=== PATIENT | male | born 2000 | race African-American/Black ===

== ENCOUNTER 2023-06-08 13:43 | Outpatient (CLI) | payer OTHER, SELFPAY ==
[2023-06-08 14:33] LABS: Eosinophils Percent Auto 0.4 % (0-4.4); Hematocrit 31.3 % (42.0-52.0); Hemoglobin 9.2 g/dL (14.0-18.0); Immature Granulocyte Absolute 0.01 K/mm3 (0.00-0.031); Immature Granulocyte Percent A 0.2 % (0-0.5); Lymphocytes Absolute Auto 1.26 K/mm3 (0.9-3.2); Lymphocytes Percent Auto 27.1 % (18.3-44.2); Mean Corpuscular HGB Conc 29.4 g/dl (32-36); Mean Corpuscular Hemoglobin 23.8 pg (26-34); Mean Corpuscular Volume 81.1 fl (80-100); Mean Platelet Volume 11.7 fl (7.4-10.4); Monocytes Absolute Auto 0.3 K/mm3 (0.1-0.6); Monocytes Percent Auto 6.9 % (2.6-8.5); Neutrophils Percent Auto 65.4 % (45.5-73.1); Platelet Count Result 278 k/mm3 (150-375); Red Blood Count 3.86 M/mm3 (4.6-6.20); Red Cell Distribution Width 16.5 % (11.5-14.5); White Blood Count 4.7 K/mm3 (4.5-10.0)
[2023-06-08 14:48] LABS: Alanine Aminotransferase 11 U/L (6-50); Albumin Level 3.8 g/dL (3.5-5.1); Alkaline Phosphatase 85 U/L (38-126); Anion Gap 7 mmol/L (4-12); Aspartate Amino Transferase 31 U/L (17-59); Bilirubin,Total 0.5 mg/dL (0.2-1.3); Blood Urea Nitrogen 8 mg/dL (9-20); CRP 2.2 mg/dL (<1.0); Calcium 9.4 mg/dL (8.4-10.2); Carbon Dioxide 30 mmol/L (22-30); Chloride 102 mmol/L (98-107); Cholesterol 146 mg/dL (0-200); Estimated Glomerular Filt Rate > 60; Glucose 94 mg/dL (65-110); HDL Direct 18 mg/dL; Potassium 3.7 mmol/L (3.4-5.0); Sodium 139 mmol/L (137-145); Triglycerides 141 mg/dL (<150)
[2023-06-08 14:54] LABS: Rheumatoid Factor < 12.0 IU/ML (<12)
[2023-06-08 15:01] LABS: LDL Cholesterol Direct 109 mg/dL
[2023-06-08 15:12] LABS: Iron 37 ug/dL (49-181)
[2023-06-08 15:21] LABS: Percent Iron Saturation 17 % (20-50)
[2023-06-08 15:25] LABS: Total Triiodothyronine (T3) 1.27 NG/ML (0.97-1.69)
[2023-06-08 15:38] LABS: Erythrocyte Sedimentation Rate 78 mm/hr (0-20)
[2023-06-08 15:48] LABS: Free T4 Free Thyroxine 1.09 ng/mL (0.78-2.19)
[2023-06-08 16:00] LABS: Folic Acid 9.5 ng/mL (2.76->20)
[2023-06-08 16:11] LABS: Vitamin D 25 Hydroxy 18.9 ng/mL
== END 2023-06-08 13:44 | disposition home or self-care (01) ==
PROVIDERS: PCP Family Medicine; Visit Provider Family Medicine
DX: R53.83 Other fatigue (principal); E78.5 Hyperlipidemia, unspecified; I10 Essential (primary) hypertension; D64.9 Anemia, unspecified; M25.50 Pain in unspecified joint
CPT/HCPCS: 36415; 80053; 80061; 82306; 82728; 82746; 83540; 83550; 84439; 84443; 84480; 85025; 85652; 86038; 86140; 86430

== ENCOUNTER 2023-07-10 11:38 | Outpatient (CLI) | payer OTHER, SELFPAY ==
[2023-07-10 12:07] LABS: Eosinophils Absolute Auto 0.1 K/mm3 (0-0.3); Eosinophils Percent Auto 1.4 % (0-4.4); Hematocrit 29.1 % (42.0-52.0); Hemoglobin 8.6 g/dL (14.0-18.0); Immature Granulocyte Absolute 0.01 K/mm3 (0.00-0.031); Immature Granulocyte Percent A 0.2 % (0-0.5); Lymphocytes Absolute Auto 0.73 K/mm3 (0.9-3.2); Lymphocytes Percent Auto 17.5 % (18.3-44.2); Mean Corpuscular HGB Conc 29.6 g/dl (32-36); Mean Corpuscular Hemoglobin 23.9 pg (26-34); Mean Corpuscular Volume 80.8 fl (80-100); Monocytes Absolute Auto 0.2 K/mm3 (0.1-0.6); Monocytes Percent Auto 3.8 % (2.6-8.5); Neutrophils Absolute Auto 3.2 K/mm3 (1.3-6.7); Neutrophils Percent Auto 77.1 % (45.5-73.1); Platelet Count Result 276 k/mm3 (150-375); Red Cell Distribution Width 16.7 % (11.5-14.5); White Blood Count 4.2 K/mm3 (4.5-10.0)
[2023-07-10 12:21] LABS: Alanine Aminotransferase 11 U/L (6-50); Alkaline Phosphatase 73 U/L (38-126); Anion Gap 7 mmol/L (4-12); Aspartate Amino Transferase 19 U/L (17-59); Bilirubin,Total 0.5 mg/dL (0.2-1.3); Blood Urea Nitrogen 7 mg/dL (9-20); CRP 1.6 mg/dL (<1.0); Calcium 9.3 mg/dL (8.4-10.2); Carbon Dioxide 30 mmol/L (22-30); Chloride 106 mmol/L (98-107); Estimated Glomerular Filt Rate > 60; Glucose 105 mg/dL (65-110); Potassium 3.4 mmol/L (3.4-5.0); Sodium 143 mmol/L (137-145)
[2023-07-10 12:44] LABS: Hypochromasia 2+; Ovalocytes 2+; Platelet Estimate Adequate (Adequate); Schistocytes None Seen
[2023-07-10 13:29] LABS: Erythrocyte Sedimentation Rate > 140 mm/hr (0-20)
[2023-07-10 20:22] LABS: HIV 1/2 Ab P24 Ag 104
[2023-07-10 20:24] LABS: HIVc Retest 1 102; HIVc Retest 2 104
[2023-07-11 19:31] LABS: HIV 1/2 Ab P24 Ag Result Reactive (Negative)
[2023-07-12 09:06] LABS: Rapid Plasma Reagin Reactive (NonReactive)
[2023-07-13 15:03] LABS: RPR Result REACTIVE (NON-REACTIVE)
[2023-07-14 16:10] LABS: HIV 1 2 Ag Ab 4th Gen w Rflxs REPEATEDLY REACTIVE (NON-REACTIVE); HIV 1 Ab Chg Test Yes; HIV 1 Antibody POSITIVE (NEGATIVE); HIV 2 Ab Chg Test Yes; HIV 2 Antibody NEGATIVE (NEGATIVE)
== END 2023-07-10 11:39 | disposition home or self-care (01) ==
PROVIDERS: PCP Family Medicine
DX: R21 Rash and other nonspecific skin eruption (principal)
CPT/HCPCS: 36415; 80053; 85025; 85652; 86038; 86140; 86592; 86701; 86702; 86703; 86780; 87389; G0432

== ENCOUNTER 2023-12-07 16:38 | Emergency (ER) | payer OTHER, SELFPAY ==
[2023-12-07 16:48] VITALS: BP 120/65; PULSE 54; RESP 17; TEMP 36.6; O2SAT 100
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
== END 2023-12-07 17:25 | disposition home or self-care (01) ==
PROVIDERS: Emergency Provider Nurse Practitioner Family; PCP Family Medicine
DX: M54.6 Pain in thoracic spine (principal)
CPT/HCPCS: 99213; G0463

== ENCOUNTER 2024-11-16 16:46 | Emergency (ER) | payer OTHER, SELFPAY ==
[2024-11-16 16:53] VITALS: BP 120/77; PULSE 86; RESP 16; TEMP 36.8; O2SAT 98
--- NOTE | 2024-11-16 19:32 | ED_ITS ---
HPI - Dental/Oral General Chief complaint: Dental/Oral Stated complaint: Right Side Facial Swelling Time Seen by Provider: 11/16/24 17:00 Source: patient and RN notes reviewed Mode of arrival: ambulatory Limitations: no limitations History of Present Illness HPI Narrative: 24-year-old male presents Express Care complaining right left-sided facial swelling and possible dental abscess. Patient reports having a fractured teeth to his right upper gum today woke up with severe swelling and pain to the right side of his face. Patient denies any difficulty clearing secretions or trismus. Denies any fevers, body aches, chills, breathing problems, or any other symptoms. Patient has a scheduled appointment with his dentist at the end the month. Related Data Allergies Allergy/AdvReac Type Severity Reaction Status Date / Time amoxicillin Allergy Intermediate Rash Verified 12/07/23 17:19 Review of Systems Review of Systems: CONSTITUTIONAL: Denies fever, chills, or sweats. EYES: Denies visual changes, redness, or discharge. ENT: Denies rhinorrhea, congestion, sore throat, or otalgia. MOUTH: POSITIVE FOR DENTAL PAIN. CARDIOVASCULAR: Denies chest pain, palpitations, or edema. RESPIRATORY: Denies cough or dyspnea. GASTROINTESTINAL: Denies abdominal pain, nausea, vomiting, or diarrhea. GENITOURINARY: Denies dysuria or hematuria. SKIN: Denies rash or itching. MUSCULOSKELETAL: Denies back pain, joint pain, or myalgia. NEUROLOGIC: Denies headache, numbness, or weakness. PSYCHIATRIC: Denies anxiety or depression. All other systems reviewed are negative, except as documented in HPI. PMFSH Comments At the time of my signature, I reviewed and agree with the nursing past medical, surgical, social, and family history. There is no relevant family history pertinent to the patient complaint. Exam Narrative: GENERAL: This is a well-nourished, well-developed adult, in no apparent dist ress. They are non ill-appearing, nontoxic appearing. HEAD: normocephalic, atraumatic. EYES: Sclera clear/white. Conjunctiva normal. Vision is grossly intact. Extraocular movements intact EARS: External ears normal, Hearing grossly intact. NOSE: External nose normal THROAT: Mucous membranes moist, posterior pharynx clear, without erythema or swelling. Uvula midline. OROPHARYNX: Right upper 2nd bicuspid and molar small erythematous and fractured. Right upper 2nd bicuspid with prominent tooth decay present. Dental decay present. No gingivitis. There is right facial swelling. No pain or swelling of the tongue. Tongue is normal. No trismus. NECK: Neck supple, non-tender without lymphadenopathy, masses or thyromegaly. CARDIOVASCULAR: Regular rate and rhythm RESPIRATORY: Respiratory rate normal, respiratory effort nonlabored, no respiratory distress SKIN: warm, Dry, intact with no suspicious lesions or rash, good texture and turgor. NEURO: awake, alert, and oriented to person, place and time. There were no obvious focal neurologic abnormalities. EXTREMITIES: No joint tenderness, effusion, or edema noted. Course Course Emergency Course: Portions of this record may have been created with voice recognition software Level of Care: Express Care Visit Vital Signs Vital signs: Vital Signs Temperature 98.3 F 11/16/24 16:53 Pulse Rate 86 11/16/24 16:53 Respiratory Rate 16 11/16/24 16:53 Blood Pressure 120/77 11/16/24 16:53 Pulse Oximetry 98 11/16/24 16:53 Oxygen Delivery Room Air 11/16/24 16:53 Temperature 98.3 F 11/16/24 16:53 Pulse Rate 86 11/16/24 16:53 Respiratory Rate 16 11/16/24 16:53 Blood Pressure 120/77 11/16/24 16:53 Pulse Oximetry 98 11/16/24 16:53 Oxygen Delivery Room Air 11/16/24 16:53 Reviewed MDM - Dental/Oral MDM Narrative Medical decision making narrative: Patient has a dental abscess. Will treat with clindamycin. Patient has a follow-up at the end of the month for a dentist. Discussed physical exam findings. Advised supportive measures and signs/symptoms to go to the ER. Pt is appropriate for outpt treatment and f/u. Differential Diagnosis Differential diagnosis: Likely gingival abscess, dental caries and dental abscess Critical Care Time Critical Care Time Critical Care Time: No Discharge Plan Discharge Clinical Impression: Dental abscess Patient Disposition: Home Condition: Stable Instructions: Antibiotic Form, Dental Abscess (ED) Additional Instructions: Take the antibiotics as directed. Take it with food. You may take ibuprofen 600 mg to 800 mg every 6-8 hours. Do not exceed more than 800 mg of ibuprofen per dose. Do not exceed more than 3200 mg ibuprofen in a day. You may take up to 1000 mg Tylenol every 6-8 hours. Do not exceed 1000 mg per dose, do exceed more than 4000 mg of Tylenol in a day. Juliette your teeth and floss at least 2 times a day. You may use mouthwash after each brushing as well. Follow-up with dentist next week. If you developed worsening swelling, fevers, difficulty swallowing or breathing, difficulty opening her jaw, swelling under the tongue, or any other concerns please go to the ER immediately. Patient Language: Tristanian Prescriptions: New clindamycin HCl [Cleocin HCl] 150 mg capsule 450 mg PO TID 7 Days Qty: 63 0RF Follow-up/Referrals: Andi Wadsworth MD [Primary Care Provider, Family Practice] Time of Disposition: 17:19
== END 2024-11-16 17:27 | disposition home or self-care (01) ==
PROVIDERS: PCP Family Medicine
DX: K04.7 Periapical abscess without sinus (principal)
CPT/HCPCS: 99213; G0463